=== PATIENT | male | born 1945 ===

== ENCOUNTER 2022-03-11 14:11 | Emergency (ER) | payer MEDICARE, OTHER ==
[2022-03-11 15:29] LABS: CORONAVIRUS COVID-19 NAA NEGATIVE (NEGATIVE); RESPIRATORY SYNCYTIAL VIR NAA NEGATIVE (NEGATIVE)
== END 2022-03-11 16:23 | disposition home or self-care (01) ==
LOC: DL.ED 14:11
DX: J06.9 Acute upper respiratory infection, unspecified (principal); E11.9 Type 2 diabetes mellitus without complications; I10 Essential (primary) hypertension; Z20.822 Contact with and (suspected) exposure to COVID-19
CPT/HCPCS: 0241U; 99283

== ENCOUNTER 2022-03-20 20:35 | Emergency (ER) | payer MEDICARE ==
[~2022-03-20 20:35] MED LIST: Albuterol 0.083% 2.5 MG/3 ML Neb Soln NEB ONE; Furosemide 40 MG/4 ML VIAL IVPUSH ONE; Ketamine 500 mg/10 ML MDV ONE; Magnesium Sulfate/Water 50 ML ONE; Midazolam 1 MG/ML 2 ML SDV ONE; Sodium Chloride 0.9% 10 ML Syringe FLUSH PRN
[2022-03-20 20:43] LABS: ANION GAP 15.1 mEq/L (7-13); CHLORIDE,CL 109 mmol/L (98-107); SODIUM,NA 143 mmol/L (136-145)
[2022-03-20] MEDS ORDERED: Nitroglycerin/D5W 25 MG/250 ML BOTTLE IV SCH (20:45)
[2022-03-20 20:51] LABS: ESTIMATED GFR 56 mL/min (>=60)
[2022-03-20 21:08] LABS: CORONAVIRUS COVID-19 NAA NEGATIVE (NEGATIVE); RESPIRATORY SYNCYTIAL VIR NAA NEGATIVE (NEGATIVE)
[2022-03-20] MEDS ORDERED: Metoprolol Tartrate 5 MG/5 ML SDV IVPUSH ONE (21:20)
[2022-03-20] MEDS ORDERED: Magnesium Sulfate/Water 50 ML ONE (21:27)
[2022-03-21] MEDS ORDERED: Magnesium Sulfate/Water 2 GM in Premix Bag 1 BAG IV ONE ×4 (00:06)
== END 2022-03-21 01:15 ==
LOC: DL.ED 20:35
DX: J44.1 Chronic obstructive pulmonary disease with (acute) exacerbation (principal); J81.0 Acute pulmonary edema; E03.9 Hypothyroidism, unspecified; I10 Essential (primary) hypertension; E11.9 Type 2 diabetes mellitus without complications; Z20.822 Contact with and (suspected) exposure to COVID-19
CPT/HCPCS: 0241U; 36415; 51702; 71045; 80053; 81001; 83605; 83735; 83880; 84145; 84443; 84484; 85025; 86140; 93005; 96365; 96366; 96375; 99285; J1940; J3475; J3490; J7613-GY